=== PATIENT | male | born 1965 | race Caucasian/White ===

== ENCOUNTER 2018-01-31 11:35 | Emergency (ER) | payer MEDICAID ==
--- NOTE | 2018-01-31 12:43 | EDPHY ---
H & P Stated Complaint: left sided headache for 2 weeks with double vision Time Seen by Provider: 01/31/18 11:41 HPI/ROS: 53-year-old male presents complaining of left occipital headache for 2 weeks duration, some left-sided neck/trapezius pain as well. He has tried [id number] medication, massage, cupping with no relief. He states it sometimes when he gets up and is walking around he sees 2 of everything, double vision. He denies loss of vision, weakness in his extremities. No fevers or chills. No nausea or vomiting. 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 Review of systems As per HPI General no fever no chills no weakness HEENT no eye pain no eye discharge. No eye redness, no sore throat Respiratory no cough, no shortness of breath Cardiac no chest pain, no peripheral edema GI no abdominal pain, no diarrhea, no constipation, no nausea, no vomiting no flank pain, no hematuria, no dysuria Musculoskeletal no myalgias, no joint pain Heme no easy bruising, no easy bleeding Endo no polyuria, no polydipsia Skin no rashes, no pruritus Neuro no syncope, no dizziness, positive headaches Psych is no suicidal ideation, no homicidal ideation Source: Patient, Family Exam Limitations: No limitations - Personal History Current Tetanus Diphtheria and Acellular Pertussis (TDAP): Yes - Medical/Surgical History Hx Asthma: No Hx Chronic Respiratory Disease: No Hx Diabetes: No Hx Cardiac Disease: No Hx Renal Disease: No Hx Cirrhosis: No Hx Alcoholism: No Hx HIV/AIDS: No Hx Splenectomy or Spleen Trauma: No Other PMH: denies medical hx or sug hx - Family History Significant Family History: No pertinent family hx, Other (CVA) - Social History Smoking Status: Current some day smoker Alcohol Use: None Drug Use: None - Physical Exam Exam: 53-year-old male alert and oriented no acute distress nontoxic appearance, afebrile HEENT atraumatic normocephalic, extraocular muscles intact, anicteric Oropharynx negative for erythema negative exudate, tolerating her own secretions Neck supple no meningismus, left paracervical tenderness to palpation no ecchymosis no swelling no erythema Lungs clear to auscultation bilaterally Heart regular rate and rhythm without murmur rub or gallop Abdomen nondistended normoactive bowel sounds soft nontender Back no CVA tenderness, no step-offs, no spinal tenderness Extremities no cyanosis clubbing or edema Neuro alert and oriented, no focal deficits Constitutional: Initial Vital Signs Temperature (C) 36.6 C 01/31/18 11:43 Heart Rate 85 01/31/18 11:43 Respiratory Rate 18 01/31/18 11:43 Blood Pressure 134/97 H 01/31/18 11:43 O2 Sat (%) 94 01/31/18 11:43 O2 Delivery Mode Room Air Allergies/Adverse Reactions: mussels Allergy (Verified 01/31/18 11:43) oyster extract Allergy (Verified 01/31/18 11:43) Home Medications: Medication Instructions Recorded NK [No Known Home Meds] 01/31/18 Medical Decision Making - Diagnostics Imaging Results: Imaging Impressions Head CT 01/31/18 12:11 Impression: 1. Negative for hemorrhage or mass lesion. A headache source is not identified. 2. See above report for additional findings. Results called and discussed with Yumi Banegas MD on 01/31/2018 at 13:09. ED Course/Re-evaluation: Patient seen and evaluated for headache of 2 weeks duration with some associated left-sided neck pain headache was left occipital. CT scan negative Labs including CBC, CRP, sed rate, BMP all within normal limits D-dimer negative Patient given 1 L normal saline, Toradol 30 mg IV push and Zofran 4 mg IV push with almost complete relief of headache. Impression Headache Left paracervical neck strain Plan DC Follow-up family medical Acetaminophen or ibuprofen as needed for pain Differential Diagnosis: Differential diagnosis considered but not limited to: Intracranial bleed, brain tumor, meningitis, encephalitis, migraine, cluster headache, tension headache, neck strain with associated headache - Data Points Laboratory Results: Laboratory Results 01/31/18 12:33 01/31/18 01/31/18 01/31/18 12:36 12:33 12:33 Hct 46.3 % % (40.0-51.0) ESR 12 MM/HR MM/HR (0-20) POC Sodium 141 mEq/L mEq/L (135-145) POC Potassium 4.0 mEq/L mEq/L (3.3-5.0) POC Chloride 105.0 mEq/L mEq/L (97-110) POC Total CO2 27 mEq/L mEq/L (22-31) POC BUN 20 mg/dL mg/dL (7-23) POC Creatinine 1.3 mg/dL mg/dL (0.7-1.3) POC Glucose 94 mg/dL mg/dL (70-100) POC Calcium 9.2 mg/dL mg/dL (8.5-10.4) Magnesium 2.2 mg/dL mg/dL (1.6-2.3) POC Total Bilirubin 0.7 mg/dL mg/dL (0.1-1.4) POC AST 37 IU/L IU/L (17-59) POC ALT 34 IU/L IU/L (21-72) POC Alk Phosphatase 70 IU/L IU/L (38-126) C-Reactive Protein < 5.0 mg/L mg/L (<10.0) POC Total Protein 6.7 g/dL g/dL (6.3-8.2) POC Albumin 3.5 g/dL g/dL (3.5-5.0) Medications Given: Discontinued Medications Sodium Chloride (Ns) 1,000 mls @ 0 mls/hr IV ONCE ONE PRN Reason: Wide Open Stop: 01/31/18 13:22 Last Admin: 01/31/18 13:29 Dose: 1,000 mls Ketorolac Tromethamine (Toradol) 30 mg IVP EDNOW ONE Stop: 01/31/18 13:22 Last Admin: 01/31/18 13:29 Dose: 30 mg Ondansetron HCl (Zofran) 4 mg IVP EDNOW ONE Stop: 01/31/18 13:22 Last Admin: 01/31/18 13:29 Dose: 4 mg Point of Care Test Results: CBC CBC Collection Date 01/31/18 CBC Collection Time 12:33 WBC 7.5 RBC 5.09 HGB 16.1 HCT 48.8 PLT 227 Neut # 4.1 Neut 54.4 LYMPH # 2.9 LYMPH 38.5 Other WBC # 0.5 Other WBC 7.1 MCV 95.9 Chemistry 01/31/18 12:36 POC Sodium 141 mEq/L mEq/L (135-145) POC Potassium 4.0 mEq/L mEq/L (3.3-5.0) POC Chloride 105.0 mEq/L mEq/L (97-110) POC Total CO2 27 mEq/L mEq/L (22-31) POC BUN 20 mg/dL mg/dL (7-23) POC Creatinine 1.3 mg/dL mg/dL (0.7-1.3) POC Glucose 94 mg/dL mg/dL (70-100) POC Calcium 9.2 mg/dL mg/dL (8.5-10.4) POC Total Bilirubin 0.7 mg/dL mg/dL (0.1-1.4) POC AST 37 IU/L IU/L (17-59) POC ALT 34 IU/L IU/L (21-72) POC Alk Phosphatase 70 IU/L IU/L (38-126) POC Total Protein 6.7 g/dL g/dL (6.3-8.2) POC Albumin 3.5 g/dL g/dL (3.5-5.0) D-Dimer D-Dimer Collection Date 01/31/18 D-Dimer (ng/ml) less than 100 Departure - Departure Disposition: Home, Routine, Self-Care Clinical Impression: Headache Condition: Good Instructions: Acute Headache (ED) Referrals: NONE *PRIMARY CARE P,. [Primary Care Provider] - As per Instructions [facility] [Provider Group] - As per Instructions
[2018-01-31] MEDS ORDERED: ONDANSETRON 4 MG/2 ML VIAL IVP ONE (13:21)
[2018-01-31] MEDS ORDERED: NS 1,000 ML IV ONE (13:21)
[2018-01-31] MEDS ORDERED: KETOROLAC 30 MG/1 ML SDV IVP ONE (13:21)
[2018-01-31 14:24] VITALS: BP 133/83
== END 2018-01-31 14:33 | disposition home or self-care (01) ==
LOC: CED 11:35
DX: R51 Headache (principal); F17.200 Nicotine dependence, unspecified, uncomplicated
CPT/HCPCS: 70450-PO; 80053-PO; 96374; J1885; J2405